=== PATIENT | male | born 1990 | race African-American/Black ===

== ENCOUNTER 2023-11-11 08:32 | Outpatient (OUT) | payer MEDICAID, SELFPAY ==
--- NOTE | 2023-11-11 08:36 | US_ITS ---
The [address] [address] Patient Name: COLIN KUMARI MRN: [id number] date: 1990 Sex: M Assigned Patient Location: [place] Current Patient Location: [place] Accession/Order Number: [id number] Exam Date: 11/11/2023 08:40 Report Date: 11/11/2023 09:08 At the request of: OMAR VERDUZCO Procedure: US right upper quadrant EXAM: US right upper quadrant HISTORY: . Hepatitis Encephalopathy, Hepatitis . COMPARISON: None. TECHNIQUE: Grayscale and color imaging was performed FINDINGS: The pancreas appears normal. The liver is normal in size. No masses are noted. Color-flow is noted in the portal and hepatic veins. The gallbladder appears normal with no stones or sludge identified. Common bile duct is normal measuring 4.5 mm. Right kidney measures 10.3 x 5.4 x 5.4 cm. Color-flow is noted. No solid renal cortical masses or hydronephrosis is noted. No fluid is noted in the right upper quadrant. US/US right upper quadrant IMPRESSION: Normal ultrasound of the right upper quadrant. Electronically authenticated by: TYRON PATINO Date: 11/11/2023 09:08
== END 2023-11-11 08:33 | disposition home or self-care (01) ==
LOC: US 08:32
PROVIDERS: PCP Family Medicine; Visit Provider Family Medicine
DX: K75.9 Inflammatory liver disease, unspecified (principal); G93.40 Encephalopathy, unspecified
CPT/HCPCS: 76705

== ENCOUNTER 2024-08-31 14:22 | Outpatient (REF) | payer MEDICAID, SELFPAY ==
--- OUTSIDE RECORDS SUMMARY | 2024-08-31 14:33 | XMS_ITS | CCD ---
Author Organization [facility] Inform ion Partnership [facility] Care Team Providers Care Bacteriologist Soil Name Role Phone DR OMAR VERDUZCO Consulting Unavailable DAX, DR OMAR Lewis Attending Unavailable VERDUZCO, DR OMAR Lewis Admitting Unavailable VERDUZCO, DR OMAR Lewis Primary Care Unavailable Unavailable Primary Care Provider Unavailabl e PROVIDER, UNKNOWN Attending Unavailable PROVIDER, UNKNOWN Admitting Unavailable Unavailable Primary Care Provider UnavailOMAR Méndez Primary Care Physician [phone] OMAR VERDUZCO Attending Unavailable OMAR VERDUZCO Admitting Unavailable Medications Current Medications Medication Drug Class(es) Dates Sig (Normalized) Sig (Original) amLODIPine 5 mg oral tablet (1 source) Dihydropyridine Calcium Channel Edna take 1 tablet by mouth once daily amLODIPine (Norvasc) 5 MG tablet Take 5 mg by mouth daily. 0 Active busPIRone hydrochloride 10 mg oral tablet (1 source) Start: 10-24-2020 take 1 tablet by mouth three times daily busPIRone (BUSPAR) 10 MG tablet TAKE ONE TABLET BY MOUTH 3 TIMES DAILY BUSPAR 0 10/24/2020 Active chlorhexidine gluconate 1.2 mg/ml mouthwash (1 source) Start: 08-10-2012 take 15 mL by mouth twice daily chlorhexidine (PERIDEX) 0.12 % oral solution Take 15 mL by mouth 2 times daily 1 Bottle 3 08/10/2012 Active clonazePAM 1 mg oral tablet (1 source) Benzodiazepine take 1 tablet by mouth twice daily clonazepam (KLONOPIN) 1 MG tablet Take 1 mg by mouth 2 times daily 0 Active cloNIDine hydrochloride 0.1 mg oral tablet (1 source) Central alpha-2 Adrenergic Agonist Start: 10-24-2020 take 1 tablet by mouth three times daily cloNIDine (CATAPRES) 0.1 MG tablet TAKE ONE TABLET BY MOUTH 3 TIMES DAILY CATAPRES 0 10/24/2020 Active docusate sodium 100 mg oral capsule (1 source) take 1 capsule by mouth twice daily docusate sodium (COLACE) 100 MG capsule Take 100 mg by mouth 2 times daily. 0 Active fluvoxaMINE maleate 50 mg oral tablet (1 source) Serotonin Reuptake Inhibitor Start: 10-24-2020 take 1 tablet by mouth three times daily fluvoxamine (LUVOX) 50 MG tablet TAKE ONE TABLET BY MOUTH 3 TIMES DAILY LUVOX 0 10/24/2020 Active 24 hr guanFACINE 4 mg extended release oral tablet (2 sources) Central alpha-2 Adrenergic Agonist Start: 10-24-2020 take 1 tablet by mouth in the morning GuanFACINE HCl (TENEX) 4 MG er tablet TAKE ONE TABLET BY MOUTH IN THE MORNING 0 10/24/2020 Active take 1 tablet by mouth at bedtim e guanfacine (TENEX) 1 MG tablet Take 1 mg by mouth at bedtime 0 Active levETIRAcetam 750 mg oral tablet (1 source) take 1 tablet by mouth twice daily levetiracetam (KEPPRA) 750 MG tablet Take 750 mg by mouth 2 times daily 0 Active levothyroxine sodium 0.075 mg oral tablet (2 sources) l-Thyroxine Start: 10-24-2020 take 1 tablet by mouth once daily levothyroxine (SYNTHROID) 75 MCG tablet TAKE ONE TABLET BY MOUTH ONCE DAILY ALONG [id number] 0 10/24/2020 Active levothyroxine (S YNTHROID) 100 MCG tablet Take 150 mcg by mouth daily 0 Active lithium carbonate 300 mg oral tablet (1 source) take 1 tablet by mouth three times daily lithium carbonate 300 MG tablet Take 300 mg by mouth 3 times daily 0 Active lubiprostone 0.024 mg oral capsule (1 source) Chloride Channel Activator Start: take 1 capsule by mouth twice daily for constipation Amitiza 24 MCG capsule TAKE ONE CAPSULE BY MOUTH TWICE A DAY FOR CONSTIPATION 0 10/24/2020 Active lurasidone hydrochloride 120 mg oral tablet (1 source) Atypical Antipsychotic Start: take 1 tablet by mouth at bedtime Latuda 120 MG TABS tablet Take by mouth at bedtime. 0 10/24/2020 Active metoprolol tartrate 100 mg oral tablet (1 source) beta-Adrenergic Edna take 1 tablet by mouth twice daily metoprolol (LOPRESSOR) 100 MG tablet Take 100 mg by mouth 2 times daily 0 Active Multiple Vitamin (Multi-Vitamins) tablet (1 source) Start: 021 take 1 tablet by mouth in the morning Multiple Vitamin (Multi-Vitamins) tablet TAKE ONE TABLET BY MOUTH IN THE MORNING 0 10/24/2020 Active Multiple Vitamins-Minerals (MULTIVITAL ORAL) (1 source) Multiple Vitamins-Minerals (MULTIVITAL ORAL) Take by mouth 0 Active OLANZapine 20 mg oral tablet (1 source) Atypical Antipsychotic take 1 tablet by mouth once daily olanzapine (ZYPREXA) 20 MG tablet Take 20 mg by mouth daily 0 Active omeprazole 20 mg delayed release oral capsule (1 source) Proton Pump Inhibitor take 1 capsule by mouth once daily omeprazole (PRILOSEC) 20 MG capsule Take 20 mg by mouth daily 0 Active OXcarbazepine 600 mg oral tablet (2 sources) Anti-epileptic Agent take 1 tablet by mouth twice daily oxcarbazepine (TRILEPTAL) 150 MG tablet Take 150 mg by mouth 2 times daily 0 Active take 1 tablet by mouth twice opal ly oxcarbazepine (TRILEPTAL) 600 MG tablet Take 600 mg by mouth 2 times daily 0 Active phenytoin sodium 100 mg extended release oral capsule (1 source) Anti-epileptic Agent take 1 capsule by mouth three times daily phenytoin (DILANTIN) 100 MG ER capsule Take 100 mg by mouth 3 times daily 0 Active raNITIdine 150 mg oral tablet (1 source) Histamine-2 Receptor Antagonist take 1 tablet by mouth twice daily ranitidine (ZANTAC) 150 MG tablet Take 150 mg by mouth 2 times daily. 0 Active Senna Leaves (1 source) SENNA ORAL Take by mouth. 0 Active sennosides, care home 8.6 mg oral tablet (1 source) Start: 1 take 2 tablets by mouth at bedtime Senna-Tabs 8.6 MG TABS tablet TAKE TWO TABLETS BY MOUTH AT BEDTIME 0 10/24/2020 Active Problems Active Problems Problem Classification Problem Date Documented Da te Episodic/Chronic Developmental disorders (1 source) Severe intellectual disability; Translations: [Severe intellectual disabilities] Onset: 2014 2014 Chronic Disorders of teeth and jaw (1 source) Chronic periodontitis; Translations: [Chronic periodontitis, unspecified] Onset: 08-07-2012 08-07-2012 Chronic Disorders usually diagnosed in infancy, childhood, or adolescence (1 source) Autistic disorder; Translations: [Autistic disorder] Onset: 2014 2014 Chronic Epilepsy; convulsions (1 source) Epilepsy; Translations: [Epilepsy, unspecified, not intractable, without status epilepticus] Onset: 2014 2014 Chronic Essential hypertension (2 sources) Essential (primary) hypertension; Translations: [Essential hypertension] Onset: 10-28-2018 10-27-2020 Chronic Mood disorders (1 source) Bipolar disorder; Translations: [Bipolar disorder, unspecified] Onset: 10-28-2018 10-27-2020 Chronic Other aftercare (1 source) Other long-term (current) drug therapy; Translations: [OTH [facility] CURRENT DRUG THERAPY] Onset: 11-09-2022 Episodic Thyroid disorders (5 sources) Hypothyroidism, unspecified; Translations: [Hypothyroidism] Onset: 10-28-2018 Chronic Past or Other Problems Problem Classification Problem Date Documented Da te Episodic/Chronic Disorders of teeth and jaw (1 source) Dental caries; Translations: [Dental caries, unspecified] Onset: 10-16-2020 10-16-2020 Episodic Other gastrointestinal disorders (1 source) Chronic constipation; Translations: [Other constipation] Onset: 10-28-2018 10-27-2020 Episodic Results Test Name Value Interpretation Reference Range Facility T3 Freeon 11-28-2023 Free T3 [Mass/Vol] 3.1 pg/mL Invalid Interpretation Code 2.0-4.4 [facility] Comment on above: Result Comment: Perf ormed at: [facility] [address] [id number] PhD Erasto Chase Performed By: #### 1 [id number], 4421655, 5325066, 0525371, 8070994, 1926727, 8280740 #### [facility] [address] [place] [address] CBC w/Indiceson 11-26-2023 Erythrocyte distribution width (RBC) [Ratio] 12.8 % Normal 10.9-14.2 [facility] Comment on above: Performed By: #### 1 [id number], 7030932, 8261191, 5840041, 3941062, 6845396, 7907092 #### [facility] [address] [place] [address] Hematocrit (Bld) [Volume fraction] 49.3 % High 37.7-49.0 [facility] Comment on above: Performed By: #### 1 1987610, 3247574, 9358835, 4869315, 5345736, 9583742, 5243398 #### [facility] [address] [place] [address] Hemoglobin (Bld) [Mass/Vol] 16.0 g/dL Normal 13.5-17.5 [facility] Comment on above: Performed By: #### 1 1790280, 0293208, 8804977, 8673933, 8124019, 1089476, 9304496 #### [facility] [address] [place] [address] MCH (RBC) [Entitic mass] 27.9 pg Normal 27.0-34.0 [facility] Comment on above: Performed By: #### 1 6878459, 8243194, 8486279, 8580310, 8419025, 1461002, 1086925 #### [facility] [address] [place] [address] MCHC (RBC) [Mass/Vol] 32.4 g/dL Normal 31.4-36.0 [facility] Comment on above: Performed By: #### 1 0689290, 6675426, 8650611, 8713592, 2029840, 8538691, 0056085 #### [facility] [address] [place] [address] MCV (RBC) [Entitic vol] 86.2 fL Normal 80.0-100.0 [facility] Comment on above: Performed By: #### 1 3204951, 9834435, 0132288, 3878534, 7844112, 7173236, 6911357 #### [facility] [address] [place] [address] Platelet 246.0 E9/L Normal 150.0-500.0 [facility] Comment on above: Performed By: #### 1 1408897, 6932571, 9604037, 6568882, 8398592, 3082602, 8212531 #### [facility] [address] [place] [address] Platelet mean volume (Bld) [Entitic vol] 8.2 fL Normal 6.4-10.8 [facility] Comment on above: Performed By: #### 1 9360904, 1827179, 1712127, 6316187, 1644931, 0165297, 2848559 #### [facility] [address] [place] [address] RBC (Bld) [#/Vol] 5.7 E12/L Normal 4.3-5.9 [facility] Comment on above: Performed By: #### 1 8968929, 8607690, 1306701, 3686361, 0434269, 7661983, 7491481 #### [facility] [address] [place], [place] [address] RBC size Nom (Bld) NORMAL Invalid Interpretation Code [facility] Comment on above: Performed By: #### 1 9995447, 7933228, 4894974, 7913111, 6863560, 1603103, 8369200 #### [facility] [address] [place], [place] [address] WBC corrected for nucl RBC Auto (Bld) [#/Vol] 5.1 E9/L Normal 4.0-11.0 [facility] Comment on above: Performed By: #### 1 6547492, 1405835, 2021111, 4602233, 3125287, 7765003, 8541560 #### [facility] [address] [place] [address] CHEMISTRYOrdered By: SYSTEM SYSTEM on 11-26-2023 Albumin [Mass/Vol] 4.5 g/dL Normal 3.3 - 5.0 gm/dL Remisol Chem Albumin/Globulin [Mass ratio] 1.4 {ratio} Normal 1.1 - 2.2 [facility] Chem ALP [Catalytic activity/Vol] 120 [iU]/d High 21 - 98 Int._Unit/L Remisol Chem ALT No additional P-5'-P [Catalytic activity/Vol] 98 [iU]/d High 6 - 46 Int._Unit/L [facility] Chem Anion gap [Moles/Vol] 12 mmol/L Normal 6 - 16 mEq/L R emisol Chem AST [Catalytic activity/Vol] 39 [iU]/d Normal 5 - 43 Int._Unit/L [facility] Chem Bilirubin [Mass/Vol] 0.3 mg/dL Normal 0.0 - 1 .1 mg/dL [facility] Chem Calcium [Mass/Vol] 9.9 mg/dL Normal 8.9 - 11. 1 mg/dL [facility] Chloride [Moles/Vol] 105 mmol/L Normal 101 - 1 11 mmol/L [facility] Chem CO2 [Moles/Vol] 25 mmol/L Normal 21 - 31 mmol/L [facility] Chem Creatinine [Mass/Vol] 0.8 mg/dL Normal 0.5 - 1.3 mg/dL [facility] Chem eGFR 118 mL/min/1.73 m2 Normal >=59mL/mi n/1. 73 m2 [facility] Chem Free T4 [Mass/Vol] 0.78 ng/dL Normal 0.58 - 1. 64 ng/dL [facility] Chem Globulin (S) [Mass/Vol] 3.2 g/dL Normal 1.4 - 4.0 gm/dL [facility] Glucose [Mass/Vol] 84 mg/dL Normal 55 - 199 mg/dL [facility] Chem Phenytoin Total 12.1 microgram/mL Normal 10.0 - 19.9 mcg/mL [facility] Chem Potassium [Moles/Vol] 4.4 mmol/L Normal 3.5 - 5.3 mmol/L [facility] Chem Protein [Mass/Vol] 7.7 g/dL Normal 6.0 - 7.8 gm/dL [facility] Chem Sodium [Moles/Vol] 138 mmol/L Normal 135 - 145 mmol/L [facility] Chem TSH Qn 0.55 m[IU]/L Normal 0.34 - 5.60 mcIU/mL [facility] Chem Urea nitrogen [Mass/Vol] 13 mg/dL Normal 5 - 21 mg/dL [facility] Chem Urea nitrogen/Creatinine [Mass ratio] 16 mg/mg Normal 10 - 20 [facility] Chem CMPon 11-26-2023 Albumin [Mass/Vol] 4.5 g/dL Normal 3.3-5.0 [facility] Comment on above: Performed By: #### 1 8196809, 8397512, 8280778, 8033190, 8428004, 3337619, 6387542 #### [facility] [address] [place] [address] Albumin/Globulin (S) [Mass conc ratio] 1.4 Normal 1.1-2.2 [facility] Comment on above: Performed By: #### 1 1447170, 8781254, 6071853, 8077084, 1852328, 0587891, 2955681 #### [facility] [address] [place] [address] ALP [Catalytic activity/Vol] 120 Int._Unit/L High 21-98 [facility] Comment on above: Performed By: #### 1 1565554, 0243860, 4823237, 8162720, 8843027, 3367745, 2085475 #### [facility] [address] [place] [address] ALT No additional P-5'-P [Catalytic activity/Vol] 98 Int._Unit/L High 6-46 [facility] Comment on above: Performed By: #### 1 2218269, 3517365, 1454309, 2523763, 3620136, 3361035, 6643380 #### [facility] [address] [place] [address] Anion gap [Moles/Vol] 12 mmol/L Normal 6-16 [facility] Comment on above: Performed By: #### 1 7608307, 6123723, 5904167, 7866956, 9726775, 7135098, 3171652 #### [facility] [address] [place] [address] AST [Catalytic activity/Vol] 39 Int._Unit/L Normal 5-43 [facility] Comment on above: Performed By: #### 1 8191840, 9504335, 0466506, 0266315, 5752390, 1658134, 2622547 #### [facility] [address] [place] [address] Bilirubin [Mass/Vol] 0.3 mg/dL Normal 0.0-1.1 [facility] Comment on above: Performed By: #### 1 3185314, 5480535, 7726627, 4243825, 7307561, 5432561, 5552324 #### [facility] [address] [place] [address] Calcium [Mass/Vol] 9.9 mg/dL Normal 8.9-11.1 [facility] Comment on above: Performed By: #### 1 9600616, 4380503, 7269824, 1264809, 7794772, 9269944, 1456694 #### [facility] [address] [place] [address] Chloride [Moles/Vol] 105 mmol/L Normal 101-111 [facility] Comment on above: Performed By: #### 1 7081268, 8780442, 6500030, 4996568, 4429928, 1485136, 7280596 #### [facility] [address] [place] [address] CO2 [Moles/Vol] 25 mmol/L Normal 21-31 [facility] Comment on above: Performed By: #### 1 5657407, 4937188, 4306245, 3161505, 2017231, 3942000, 6454034 #### [facility] [address] [place] [address] Creatinine [Mass/Vol] 0.8 mg/dL Normal 0.5-1.3 [facility] Comment on above: Performed By: #### 1 7566738, 3966455, 5556012, 1008110, 1653509, 5586975, 0383835 #### [facility] [address] [place] [address] Globulin (S) [Mass/Vol] 3.2 g/dL Normal 1.4-4.0 [facility] Comment on above: Performed By: #### 1 3481220, 6969160, 7507922, 6462354, 3802221, 1162145, 2738609 #### [facility] [address] [place] [address] Glucose [Mass/Vol] 84 mg/dL Normal 55-199 [facility] Comment on above: Performed By: #### 1 3882870, 8432134, 5605951, 9118486, 4989843, 5605136, 5513397 #### [facility] [address] [place] [address] Potassium [Moles/Vol] 4.4 mmol/L Normal 3.5-5.3 [facility] Comment on above: Performed By: #### 1 9695278, 9874097, 0276127, 3143231, 0786076, 2142614, 4589229 #### [facility] [address] [place] [address] Protein [Mass/Vol] 7.7 g/dL Normal 6.0-7.8 [facility] Comment on above: Performed By: #### 1 9218030, 1466172, 4729987, 4559302, 7309967, 2802026, 6397278 #### [facility] [address] [place] [address] Sodium [Moles/Vol] 138 mmol/L Normal 135-145 [facility] Comment on above: Performed By: #### 1 4075615, 5412462, 1893891, 3130966, 6975193, 6845352, 1801688 #### [facility] [address] [place] [address] Urea nitrogen [Mass/Vol] 13 mg/dL Normal 5-21 [facility] Comment on above: Performed By: #### 1 0637905, 4713326, 1012012, 2907262, 2752575, 5139649, 5306562 #### [facility] [address] [place] [address] Urea nitrogen/Creatinine [Mass ratio] 16 No Units Normal 10-20 [facility] Comment on above: Performed By: #### 1 4049821, 5287764, 5019139, 6950147, 8195702, 1934278, 9989143 #### [facility] [address] [place] [address] Dilantinon 11-26-2023 Phenytoin Total 12.1 microgram/mL Normal 10.0-19.9 [facility] Comment on above: Performed By: #### 1 7074477, 1593774, 6699015, 6603067, 3984584, 7919140, 3710781 #### [facility] [address] [place] [address] Free T4on 11-26-2023 Free T4 [Mass/Vol] 0.78 ng/dL Normal 0.58-1.64 [facility] Comment on above: Performed By: #### 1 9311339, 9994004, 6796259, 1104762, 1570407, 2051045, 9746282 #### [facility] [address] [place] [address] HEMATOLOGYOrdered By: SYSTEM SYSTEM on 11-26-2023 Erythrocyte distribution width (RBC) [Ratio] 12.8 % Normal 10.9 - 14.2 % Remisol Heme Hematocrit (Bld) [Volume fraction] 49.3 % High 37.7 - 49.0 % Remisol Heme Hemoglobin (Bld) [Mass/Vol] 16.0 g/dL Normal 13.5 - 17.5 gm/dL Remisol Heme MCH (RBC) [Entitic mass] 27.9 pg Normal 27.0 - 34.0 pg Remisol Heme MCHC (RBC) [Mass/Vol] 32.4 g/dL Normal 31.4 - 36.0 gm/dL Remisol Heme MCV (RBC) [Entitic vol] 86.2 fL Normal 80.0 - 100.0 fL Rem[facility] Heme Platelet 246.0 E9/L Normal 150.0 - 500.0 E9/L Remisol Heme Platelet mean volume (Bld) [Entitic vol] 8.2 fL Normal 6.4 - 10.8 fL Remisol Heme RBC (Bld) [#/Vol] 5.7 E12/L Normal 4.3 - 5.9 E12/L Remisol Heme RBC size Nom (Bld) NORMAL *NA* (11/26/23 7:15 AM) Invalid Interpretation Code Remisol Heme WBC corrected for nucl RBC Auto (Bld) [#/Vol] 5.1 E9/L Normal 4.0 - 11.0 E9/L [facility] Heme Physician Orderon 11-26-2023 Physician Order [id number] Normal [facility] TSHon 11-26-2023 TSH Qn 0.55 m[IU]/L Normal 0.34-5.60 [facility] Comment on above: Performed By: #### 1 3705142, 8985244, 3567479, 2154793, 1939475, 5264101, 5637179 #### [facility] [address] [place] [address] eGFRon 11-26-2023 eGFR 118 mL/min/1.73 m2 Normal >=59 [facility] Comment on above: Order Comment: Order added by Discern Expert. Performed By: #### 1 3371544, 0694455, 2890813, 2546893, 0138218, 6888220, 4933687 #### [facility] [address] [place] [address] Telephone Encounteron 2022 [employer] Authentication Interface Message Text Reason for Escalation: RN Kenya from [facility] calling in to speak with Blanquita. She states she had a phone number for Blanquita that no longer works. The pt was seen on 02/12/23 and was placed on the OR waitlist. Kenya states that pt upper left tooth has broken. They would like to know if the clinic has a cancelation list or urgent waitlist for OR appts. Kenya can be reached at [phone]. E-mail sent to Kelli 03/11/23 Normal [facility] [employer] Progress Noteson 02-12-2023 [employer] Authentication Interface Message Text ----- Sunday, February 12, 2023 at 10:21:24 AM ----- ----- Provider: Elena Benedict DDS -- Clinic: [place] [address] ----- OR EVALUATION Patient presents for evaluation to determine best course of treatment due to history of Intellectual disability, Bipolar disorder, hypertension, epilepsy. Patient is accompanied by caregiver for today's appointment. Patient partially cooperated for a partial intraoral exam. Clinical findings: Gingivitis, gingival overgrowth due to Klonopin and amlodipine, severe plaque deposits. No obvious signs of infection or fractured teeth. It is best suited that this patient have full comprehensive examination, radiographs and treatment completed in the OR setting. Explained that the patient will be added to our OR waiting list ( once consent form is returned) , and the legal guardian will be contacted once a time slot becomes available. Legal Guardian: [phone] (Home Phone) Alternate Ore Puncher Noe Moraes (Father) NOTE: Consent form provider to caregiver, explained that when consent form is faxed, patient will be added to the OR list Next Visit: OR Normal [facility] [employer] [facility] CBC AUTO DIFFon 11-06-2022 BASO # 0.0 103/ul Normal 0.0-0.1 [facility] Comment on above: Performed By: #### C BC #### [facility] [address] [place] [address] Dr. Brenton Ravi Basophils/100 WBC (Bld) 0.4 % Normal 0.2-2.0 [facility] Comment on above: Performed By: #### C BC #### [facility] [address] [place] [address] Dr. Brenton Ravi EO # 0.1 103/ul Normal 0.0-0.7 [facility] Comment on above: Performed By: #### C BC #### [facility] [address] [place] [address] Dr. Brenton Ravi Eosinophils/100 WBC (Bld) 2.0 % Normal 0.9-7.0 [facility] Comment on above: Performed By: #### C BC #### [facility] [address] [place] [address] Dr. Brenton Ravi Erythrocyte distribution width (RBC) [Ratio] 12.5 % Normal 11.0-15.0 [facility] Comment on above: Performed By: #### C BC #### [facility] [address] [address] [address] Brenton Ravi Hematocrit (Bld) [Volume fraction] 44.5 % Normal 42.0-54.0 [facility] Comment on above: Performed By: #### C BC #### [facility] [address] [address] [address] Brenton Ravi Hemoglobin (Bld) [Mass/Vol] 14.8 g/dL Normal 14.0-18.0 [facility] Comment on above: Performed By: #### C BC #### [facility] [address] [address] [address] Brenton Ravi IG # 0.02 10e3/ul Normal 0.00-0.03 [facility] Comment on above: Performed By: #### C BC #### [facility] [address] [address] [address] Brenton Ravi IG % 0.4 % Normal 0.0-0.5 [facility] Comment on above: Performed By: #### C BC #### [facility] [address] [address] [address] Brenton Ravi LYMPH # 1.8 103/ul Normal 1.2-3.8 [facility] Comment on above: Performed By: #### C BC #### [facility] [address] [address] [address] Brenton Ravi Lymphocytes/100 WBC (Bld) 36.7 % Normal 20.5-60.0 [facility] Comment on above: Performed By: #### C BC #### [facility] [address] [address] [address] Brenton Ravi MANUAL DIFF REQ NO Normal [facility] Comment on above: Performed By: #### C BC #### [facility] [address] [place] [address] Dr. Brenton Ravi MCH (RBC) [Entitic mass] 27.8 pg Normal 25.9-34.0 [facility] Comment on above: Performed By: #### C BC #### [facility] [address] [address] [address] Brenton Ravi MCHC (RBC) [Mass/Vol] 33.3 g/dL Normal 29.9-35.2 [facility] Comment on above: Performed By: #### C BC #### [facility] [address] [address] [address] Brenton Ravi MCV (RBC) [Entitic vol] 83.5 fL Normal 80.0-94.0 [facility] Comment on above: Performed By: #### C BC #### [facility] [address] [address] [address] Brenton Ravi MONO # 0.4 103/ul Normal 0.3-0.8 [facility] Comment on above: Performed By: #### C BC #### [facility] Laboratory [address] [place] [address] Dr. Brenton Ravi Monocytes/100 WBC (Bld) 8.2 % Normal 1.7-12.0 [facility] Comment on above: Performed By: #### C BC #### [facility] Laboratory [address] [place] [address] Dr. Brenton Ravi NEUT # 2.6 103/ul Normal 1.4-6.5 [facility] Comment on above: Performed By: #### C BC #### [facility] Laboratory [address] [place] [address] Dr. Brenton Ravi Neutrophils/100 WBC (Bld) 52.3 % Normal 43.0-75.0 [facility] Comment on above: Performed By: #### C BC #### [facility] Laboratory [address] [place] [address] Dr. Brenton Ravi Platelet mean volume (Bld) [Entitic vol] 8.8 fL Critically low 9.5-13.5 [facility] Comment on above: Performed By: #### C BC #### [facility] [address] [place] [address] Dr. Brenton Ravi PLT 291 103/ul Normal 150-450 [facility] Comment on above: Performed By: #### C BC #### [facility] [address] [place] [address] Dr. Brenton Ravi RBC 5.33 106/ul Normal 4.70-6.10 [facility] Comment on above: Performed By: #### C BC #### [facility] [address] [place] [address] Dr. Brenton Ravi WBC 5.0 103/ul Normal 4.0-11.0 [facility] Comment on above: Performed By: #### C BC #### [facility] Laboratory [address] [place] [address] Dr. Brenton Ravi DILANTINon 11-06-2022 Phenytoin [Mass/Vol] 11.7 ug/mL Normal 10.0-20.0 [facility] Comment on above: Performed By: #### P HY #### [facility] Laboratory [address] [place] [address] Dr. Brenton Ravi FREE T4on 11-06-2022 Free T4 [Mass/Vol] 0.86 ng/dL Normal 0.76-1.46 [facility] Comment on above: Performed By: #### F T4 #### [facility] Laboratory [address] [place] [address] Dr. Brenton Ravi LIPID PROFILEon 11-06-2022 CHOL-HDL RATIO NORM SEE BELOW Normal [facility] Comment on above: Result Comment: 3.3 - 4.4 LOW RISK 4.4 - 7.1 AVERAGE RISK 7.1 - 11.0 MODERATE RISK >11.0 HIGH RISK Performed By: #### C MP, LIPID, TSH #### [facility] [address] [place] [address] Dr. Brenton Ravi Cholesterol [Mass/Vol] 133 mg/dL Normal <=200 [facility] Comment on above: Performed By: #### C MP, LIPID, TSH #### [facility] Laboratory [address] [place] [address] Dr. Brenton Ravi Cholesterol in HDL [Mass/Vol] 32 mg/dL Critically low 40-60 [facility] Comment on above: Performed By: #### C MP, LIPID, TSH #### [facility] [address] [place] [address] Dr. Brenton Ravi Cholesterol in LDL [Mass/Vol] 74.6 mg/dL Normal [facility] Comment on above: Performed By: #### C MP, LIPID, TSH #### [facility] Laboratory [address] [address] [address] Brenton Ravi Cholesterol.total/Cho lesterol in HDL [Mass ratio] 4.2 {ratio} Normal [facility] Comment on above: Performed By: #### C MP, LIPID, TSH #### [facility] Laboratory [address] [address] [address] Brenton Ravi HDL NORMAL > or = 60 mg/dl - LOW CARDIOVASCULAR RISK <40 mg/dl - HIGH CARDIOVASCULAR RISK Normal [facility] Comment on above: Performed By: #### C MP, LIPID, TSH #### [facility] [address] [place] [address] Dr. Brenton Ravi LDL CALC NORMAL SEE BELOW Normal [facility] Comment on above: Result Comment: <100 mg/dl OPTIMAL 100 - 129 mg/dl NEAR OR ABOVE OPTIMAL 130 - 159 mg/dl BORDERLINE HIGH 160 - 189 mg/dl HIGH >190 mg/dl VERY HIGH Performed By: #### C MP, LIPID, TSH #### [facility] [address] [place] [address] Dr. Brenton Ravi Triglyceride [Mass/Vol] 132 mg/dL Normal <=150 [facility] Comment on above: Performed By: #### C MP, LIPID, TSH #### [facility] [address] [place] [address] Dr. Brenton Ravi VLDL CALC 26.4 mg/dL Normal [facility] Comment on above: Performed By: #### C MP, LIPID, TSH #### [facility] [address] [address] [address] Brenton Ravi PROF 14(COMP METB)on 023 Albumin [Mass/Vol] 4.0 g/dL Normal 3.4-5.0 [facility] Comment on above: Performed By: #### C MP, LIPID, TSH #### [facility] [address] [place] [address] Dr. Brenton Ravi Albumin/Globulin [Mass ratio] 1.1 {ratio} Normal [facility] Comment on above: Performed By: #### C MP, LIPID, TSH #### [facility] [address] [address] [address] Brenton Ravi ALP [Catalytic activity/Vol] 140 U/L Critically high 46-116 [facility] Comment on above: Performed By: #### C MP, LIPID, TSH #### [facility] [address] [address] [address] Brenton Ravi ALT [Catalytic activity/Vol] 122 U/L Critically high 16-63 [facility] Comment on above: Performed By: #### C MP, LIPID, TSH #### [facility] [address] [place] [address] Dr. Brenton Ravi Anion gap [Moles/Vol] 11.6 mmol/L Normal [facility] Comment on above: Performed By: #### C MP, LIPID, TSH #### [facility] [address] [place] [address] Dr. Brenton Ravi AST [Catalytic activity/Vol] 37 U/L Normal 15-37 [facility] Comment on above: Performed By: #### C MP, LIPID, TSH #### [facility] [address] [place] [address] Dr. Brenton Ravi Bilirubin [Mass/Vol] 0.2 mg/dL Normal 0.2-1.0 [facility] Comment on above: Performed By: #### C MP, LIPID, TSH #### [facility] [address] [place] [address] Dr. Brenton Ravi Calcium [Mass/Vol] 9.1 mg/dL Normal 8.5-10.1 [facility] Comment on above: Performed By: #### C MP, LIPID, TSH #### [facility] [address] [place] [address] Dr. Brenton Ravi Chloride [Moles/Vol] 105 mmol/L Normal 98-107 [facility] Comment on above: Performed By: #### C MP, LIPID, TSH #### [facility] [address] [place] [address] Dr. Brenton Ravi CO2 [Moles/Vol] 29.5 mmol/L Normal 21.0-32.0 [facility] Comment on above: Performed By: #### C MP, LIPID, TSH #### [facility] [address] [address] [address] Brenton Ravi Creatinine [Mass/Vol] 0.79 mg/dL Normal 0.70-1.30 [facility] Comment on above: Performed By: #### C MP, LIPID, TSH #### [facility] [address] [address] [address] Brenton Ravi EGFR-AF CITIZEN [place] >60 Normal >=60 [facility] Comment on above: Performed By: #### C MP, LIPID, TSH #### [facility] [address] [address] [address] Brenton Ravi EGFR-NON AF CITIZEN OF [place] >60 Normal >=60 [facility] Comment on above: Performed By: #### C MP, LIPID, TSH #### [facility] [address] [address] [address] Brenton Ravi Globulin (S) [Mass/Vol] 3.7 g/dL Normal [facility] Comment on above: Performed By: #### C MP, LIPID, TSH #### [facility] [address] [address] [address] Brenton Ravi Glucose [Mass/Vol] 105 mg/dL Normal 74-106 [facility] Comment on above: Performed By: #### C MP, LIPID, TSH #### [facility] [address] [address] [address] Brenton Ravi Potassium [Moles/Vol] 4.1 mmol/L Normal 3.5-5.1 [facility] Comment on above: Performed By: #### C MP, LIPID, TSH #### [facility] [address] [address] [address] Brenton Ravi Protein [Mass/Vol] 7.7 g/dL Normal 6.4-8.2 [facility] Comment on above: Performed By: #### C MP, LIPID, TSH #### [facility] [address] [address] [address] Brenton Ravi Sodium [Moles/Vol] 142 mmol/L Normal 136-145 [facility] Comment on above: Performed By: #### C MP, LIPID, TSH #### [facility] [address] [address] [address] Brenton Ravi Urea nitrogen [Mass/Vol] 10.0 mg/dL Normal 7.0-18.0 [facility] Comment on above: Performed By: #### C MP, LIPID, TSH #### [facility] [address] [address] [address] Brenton Ravi Urea nitrogen/Creatinine [Mass ratio] 12.7 mg/mg Normal [facility] Comment on above: Performed By: #### C MP, LIPID, TSH #### [facility] [address] [address] [address] Brenton Ravi TSHon 11-06-2022 TSH 1.080 uIU/mL Normal 0.358-3.740 [facility] Comment on above: Performed By: #### C MP, LIPID, TSH #### [facility] [address] [address] [address] Brenton Ravi Encounters Encounter Date Encounter Type Care Provider Facility Start: 11-26-2023 End: 11-26-2023 Lab Drop off OMAR VERDUZCO [facility] Start: 11-26-2023 End: 11-27-2023 ambulatory OMAR VERDUZCO [facility] Start: 10-30-2023 Telephone encounter Ale[facility] Start: 03-11-2023 Telephone encounter Shannen Benedict Work Phone: [facility] Comment on above: Dental Start: 02-12-2023 End: 02-13-2023 ambulatory UNKNOWN PROVIDER Facility:[facility] Start: 11-06-2022 End: 11-07-[address] OMAR VERDUZCO Facility: Plan of Treatment Date Care Activity Detail Author Start: 2038 Shingles (RZV) Vacci ne (1 of 2) Shingles (RZV) Vaccine (1 of 2) [facility] Start: 02-04-2024 Tetanus vaccination Tetanus (T d or Tdap) [facility] Start: 06-01-2023 Influenza vaccination Influenza Vacc ine (#1) [facility] Start: 05-02-2023 Influenza vaccination Influenza Vacc ine [facility] Start: 11-26-2007 DTaP,Tdap and Td Vaccines (1 - Tdap) DTaP,Tdap and Td Vaccines (1 - Tdap) [facility] Start: 2006 Adult BMI Screening Adult BMI Screen ing [facility] Start: 2006 Hepatitis C screening Hepatitis C An tibody [facility] Start: 11-26-2003 HIV screening HIV Test [facility] Start: 2000 Depression Screening Depression Scre ening [facility] Start: 2000 Tobacco Screening Tobacco Screening [facility] Start: 1988 Basic metabolic 2000 panel - Serum or Plasma Basic Metabolic Panel [facility] Start: 1988 Thyroid stimulating hormone measurement TSH [facility] Immunizations Immunization Date Immunization Notes Care Provider Fa cility 06-27-2021 influenza, injectabl e, quadrivalent, [facility] 06-27-2021 influenza virus vacc ine, unspecified formulation [facility] Work Phone: [facility] 10-03-2020 Pfizer Monovalent (1 2+ yrs) SARS-COV-2 (COVID-19) vaccine, mRNA, spike protein, LNP, pres. free, 30 mcg/0.3mL dose (YPH=693) [facility] Benedict Work Phone: [facility] 09-12-2020 Pfizer Monovalent (1 2+ yrs) SARS-COV-2 (COVID-19) vaccine, mRNA, spike protein, LNP, pres. free, 30 mcg/0.3mL dose (XSE=229) [facility] Benedict Work Phone: [facility] 06-07-2020 influenza, injectabl e, quadrivalent, preservative free Shannen Jose Benedict Work Phone: [facility] 06-25-2019 influenza, injectabl e, quadrivalent, preservative free Shannen Jose Benedict Work Phone: [facility] 06-10-2018 influenza, injectabl e, quadrivalent, preservative free Shannen Jose Benedict Work Phone: [facility] 06-25-2017 influenza, injectabl e, quadrivalent, contains preservative Shannen Jose Benedict Work Phone: [facility] 06-05-2016 influenza, seasonal, injectable Shannen Jose Benedict Work Phone: [facility] 06-22-2015 influenza, injectabl e, quadrivalent, preservative free Shannen Garcia Benedict Work Phone: [facility] 07-07-2014 influenza, injectabl e, quadrivalent, preservative free Shannen Jose Benedict Work Phone: [facility] 02-03-2014 tetanus toxoid, redu devyn diphtheria toxoid, and acellular pertussis vaccine, adsorbed [facility]: [facility] 06-29-2013 influenza, seasonal, injectable Shannen Jose Benedict Work Phone: [facility] 06-24-2012 influenza, seasonal, injectable Shannen Jose Benedict Work Phone: [facility] 05-15-2011 influenza, seasonal, injectable Shannen Barleela Benedict Work Phone: [facility] 06-27-2010 influenza virus vacc ine, whole virus [facility] 07-19-2009 novel influenza-H1N1 -09, preservative-free, injectable Shannen Jose Benedict Work Phone: [facility] 06-23-2008 influenza virus vacc ine, whole virus [facility] 06-17-2007 influenza, seasonal, injectable Shannen Benedict Work Phone: [facility] 01-15-2007 meningococcal polysa ccharide (groups A, C, Y and W-135) diphtheria toxoid conjugate vaccine (MCV4P) Shannen Benedict Work Phone: [facility] 06-30-2006 influenza, seasonal, injectable Shannen Benedict Work Phone: [facility] 06-21-2004 hepatitis B vaccine, pediatric or pediatric/adolescent dosage Shannen Jose Benedict Work Phone: [facility] 01-25-2004 hepatitis B vaccine, pediatric or pediatric/adolescent dosage Shannen Jose Benedict Work Phone: [facility] 12-14-2003 hepatitis B vaccine, pediatric or pediatric/adolescent dosage Shannen Jose Benedict Work Phone: [facility] 12-14-2003 TD(adult) unspecifie d formulation Shannen Jose Benedict Work Phone: [facility] 12-20-1993 diphtheria, tetanus toxoids and acellular pertussis vaccine, unspecified formulation [place] Jose Benedict Work Phone: [facility] 12-20-1993 measles, mumps and r ubella virus vaccine [place] Jose Benedict Work Phone: [facility] 12-20-1993 trivalent poliovirus vaccine, live, oral Shannen Jose Benedict Work Phone: [facility] 05-03-1992 diphtheria, tetanus toxoids and acellular pertussis vaccine, unspecified formulation Shannen Jose Benedict Work Phone: [facility] 05-03-1992 measles, mumps and r ubella virus vaccine [place] Jose Benedict Work Phone: [facility] 05-03-1992 trivalent poliovirus vaccine, live, oral Shannen Jose Benedict Work Phone: [facility] 05-27-1990 diphtheria, tetanus toxoids and acellular pertussis vaccine, unspecified formulation Shannen Benedict Work Phone: [facility] 05-27-1990 haemophilus influenz ae type b vaccine, PRP-T conjugate Shannen Benedict Work Phone: [facility] 05-27-1990 trivalent poliovirus vaccine, live, oral Shannen Benedict Work Phone: [facility] 05-21-1990 trivalent poliovirus vaccine, live, oral Shannen Benedict Work Phone: [facility] 11-19-1989 diphtheria, tetanus toxoids and acellular pertussis vaccine, unspecified formulation Shannen Benedict Work Phone: [facility] 01-30-1989 diphtheria, tetanus toxoids and acellular pertussis vaccine, unspecified formulation Shannen Benedict Work Phone: [facility] 01-30-1989 trivalent poliovirus vaccine, live, oral Shannen Benedict Work Phone: [facility] Payers Date Payer Category Payer Medicaid MEDICAID [id number] DITIONAL MEDICAID [id number] 2012-Present [address] [place] [address] Medicaid [id number] 1988 Unknown [id number] 1988 Unknown [id number] 1988 Unknown [id number] 1961 Medicaid [id number] Social History Date Type Detail Facility Tobacco smoking status [facility]: [facility] Sex Assigned At Not on file [facility] Gender identity Not on file [facility] Tobacco smoking status No Smoking Status Entered [facility] Evaluation + Plan note 11-26-2023 Note Date & Type Note Facility 11-26-2023 Evaluation + Plan note Diagnostic Tests PendingT3 Free 11/26/23 [facility] Note 10-30-2023 Telephone Encounter - Alecia Batista - 10/30/2023 9:43 AM EST Note Date & Type Note Facility 10-30-2023 Miscellaneous Notes Formattin g of this note might be different from the original. [facility] called stating they needed to cancel his appt on 11/25/[address] Snow as he was the wrong pt. documented in this encounter [employer] Telephone encounter Note 10-30-2023 Telephone Encounter - Alecia Batista - 10/30/2023 9:43 AM EST Note Date & Type Note Facility 10-30-2023 Telephone encount er Note [facility] called stating they needed to cancel his appt on 11/25/[address] Snow as he was the wrong pt. [employer] [facility] Telephone encounter Note 03-11-2023 Telephone Encounter - Aminata Conway - 03/11/2023 2:33 PM EDT Note Date & Type Note Facility 03-11-2023 Telephone encounter Note Form atting of this note might be different from the original. Reason for Escalation: RN Kenya from [facility] calling in to speak with Blanquita. She states she had a phone number for Blanquita that no longer works. The pt was seen on 02/12/23 and was placed on the OR waitlist. Kenya states that pt upper left tooth has broken. They would like to know if the clinic has a cancelation list or urgent waitlist for OR appts. Kenya can be reached at [phone]. E-mail sent to Kelli [facility]11[facility] 03-11-2023 Telephone Encounter - Aminata Conway - 03/11/2023 2:33 PM EDT Note Date & Type Note Facility 03-11-2023 Miscellaneous Notes Formattin g of this note might be different from the original. Reason for Escalation: RN Kenya from [facility] calling in to speak with Blanquita. She states she had a phone number for Blanquita that no longer works. The pt was seen on 02/12/23 and was placed on the OR waitlist. Kenya states that pt upper left tooth has broken. They would like to know if the clinic has a cancelation list or urgent waitlist for OR appts. Kenya can be reached at [phone]. E-mail sent to Kelli 03/11/23 documented in this encounter [facility] Hospital course Narrative Note Date & Type Note [facility] course Narrative No data available for this section [facility] Hospital Discharge instructions Note Date & Type Note Facility Hospital Discharge instructions No data available for this section [facility] Instructions Note Date & Type Note Facility Instructions Not on filedocumented in this en counter [facility] Progress note Note Date & Type Note Facility Progress note No data available for this section [facility] Summary Purpose Family History No Family History Records FoundNo Family History Records Found No data available for this section No Family History Records Found Advance Directives No Advanced Directives Records FoundNo Advanced Directives Records FoundNo Advanced Directives Records Found Additional Source Comments (unrecognized sect ion and content) No Status Records FoundNo Status Records FoundNo Status Records Found INFORMATION SOURCE (unrecogn ized section and content) DATE CREATED AUTHOR 12/07/2022 [facility] DATE CREATED AUTHOR AUTHOR'S ORGANIZ ATION 03/12/2023 [facility] DATE CREATED AUTHOR AUTHOR'S ORGANIZ ATION 11/28/2023 [facility] Reason for Visit (unrecogniz ed section and content) Reason Onset Date Comments Dental 03/11/2023 Patient Care team informatio n (unrecognized section and content) Personnel Name: OMAR VERDUZCO DO Address: Address: [address] [place] [address] FOR RECORDS PERTAINING TO PATIENTS WHO ARE OR HAVE BEEN ENROLLED IN A CHEMICAL DEPENDENCY/SUBSTANCEABUSE PROGRAM, SOME INFORMATION MAY BE OMITTED. This clinical summary was aggregated from multiple sources. Caution should be exercised in using it in the provision of clinical care. This summary normalizes information from multiple sources, and as a consequence, information in this document may materially change the coding, format and clinical context of patient data. In addition, data may be omitted in some cases. CLINICAL DECISIONS SHOULD BE BASED ON THE PRIMARY CLINICAL RECORDS. [facility]. provides no warranty or guarantee of the accuracy or completeness of information in this document.
[2024-08-31 15:01] LABS: Bilirubin Urine NEGATIVE (NEGATIVE); Blood Urine NEGATIVE (NEGATIVE); Clarity Urine CLEAR (CLEAR); Color Urine YELLOW (YELLOW); Glucose Urine UA NEGATIVE (NEGATIVE); Ketones Urine NEGATIVE (NEGATIVE); Leukocyte Esterase Urine NEGATIVE (NEGATIVE); Nitrite Urine NEGATIVE (NEGATIVE); Protein Urine NEGATIVE (NEG/TRACE); Specific Gravity Urine 1.025 (1.005-1.025); Urobilinogen Urine 0.2 EU/dL (0.2-1.0)
[2024-08-31 15:02] LABS: Urine Microscopic Indicated NO
== END 2024-08-31 14:23 | disposition home or self-care (01) ==
LOC: LAB 14:22
PROVIDERS: PCP Family Medicine; Visit Provider Family Medicine
DX: R35.0 Frequency of micturition (principal); N39.498 Other specified urinary incontinence
CPT/HCPCS: 81003

== ENCOUNTER 2024-11-09 09:11 | Outpatient (OUT) | payer MEDICAID, SELFPAY ==
[2024-11-10 06:54] LABS: Basophils Percent Auto 0.6 % (0.2-2.0); Eosinophils Absolute Auto 0.1 10^3/uL (0.0-0.7); Eosinophils Percent Auto 2.4 % (0.9-7.0); Hematocrit 44.7 % (42.0-54.0); Hemoglobin 15.2 g/dL (14.0-18.0); Immature Granulocytes Abs Auto 0.01 10^3/uL (0.00-0.03); Immature Granulocytes Pct Auto 0.2 % (0.0-0.5); Lymphocytes Absolute Auto 1.7 10^3/uL (1.2-3.8); Lymphocytes Percent Auto 34.3 % (20.5-60.0); Mean Corpuscular Hemoglobin 28.3 pg (25.9-34.0); Mean Corpuscular Volume 83.2 fL (80.0-94.0); Mean Platelet Volume 9.3 fL (9.5-13.5); Monocytes Absolute Auto 0.5 10^3/uL (0.3-0.8); Monocytes Percent Auto 10.5 % (1.7-12.0); Neutrophils Absolute Auto 2.6 10^3/uL (1.4-6.5); Platelet Count 233 10^3/uL (150-450); Red Blood Count 5.37 10^6/uL (4.70-6.10); Red Cell Distribution Width 12.3 % (11.0-15.0); White Blood Count 5.1 10^3/uL (4.0-11.0)
[2024-11-10 07:48] LABS: Free T4 0.79 ng/dL (0.76-1.46)
[2024-11-10 07:53] LABS: Alanine Aminotransferase 89 U/L (16-63); Albumin Level 3.6 g/dL (3.4-5.0); Alkaline Phosphatase 142 U/L (46-116); Anion Gap 12.9; Aspartate Amino Transferase 30 U/L (15-37); BUN Creatinine Ratio 9.7; Bilirubin Total 0.2 mg/dL (0.2-1.0); Calcium 8.8 mg/dL (8.5-10.1); Carbon Dioxide 25.1 mmol/L (21.0-32.0); Chloride 105 mmol/L (98-107); Estimated GFR (African America >60 (>=60 mL/min/1.73m^2); Estimated GFR (Non-African Ame >60 (>=60 mL/min/1.73m^2); Free T3 2.78 pg/mL (2.18-3.98); Globulin 3.7 g/dL; Glucose 106 mg/dL (74-106); Sodium 139 mmol/L (136-145); Thyroid Stimulating Hormone 0.709 uIU/mL (0.358-3.740); Total Protein 7.3 g/dL (6.4-8.2)
--- OUTSIDE RECORDS SUMMARY | 2024-11-15 09:24 | XMS_ITS | CCD ---
Author Organization [facility] Inform ion Partnership [facility] Care Team Providers Care Lubrication Technician Name Role Phone DR OMAR VERDUZCO Consulting Unavailable VERDUZCO, DR OMAR Lewis Attending Unavailable VERDUZCO, DR OMAR Lewis Admitting Unavailable VERDUZCO, DR OMAR Lewis Primary Care Unavailable Unavailable Primary Care Provider Unavailabl e PROVIDER, UNKNOWN Attending Unavailable PROVIDER, UNKNOWN Admitting Unavailable OMAR VERDUZCO Primary Care Physician [phone] OMAR VERDUZCO Attending Unavailable OMAR VERDUZCO Admitting Unavailable Unavailable Primary Care Provider Unavailabl e Medications Current Medications Medication Drug Class(es) Dates [...] ONE TABLET BY MOUTH ONCE DAILY ALONG [id number] 10/24/2020 Active levothyroxine (S YNTHROID) 100 [...] ORAL Take by mouth. 0 Active sennosides, senior living 8.6 mg oral tablet (1 source) Start: [...] 10-27-2020 Chronic Other aftercare (1 source) Other alf (current) drug therapy; Translations: [OTH HALFWAY CURRENT DRUG THERAPY] Onset: 11-09-2022 Episodic Thyroid [...] [Mass/Vol] 3.1 pg/mL Invalid Interpretation Code 2.0-4.4 [facility] Comment on above: Result Comment: Perf ormed at: [facility] [address] [id number] PhD Erasto Chase Performed By: #### 1 [id number], 4775974, 0076999, 8002854, 8938655, 1843155, 8583131 #### [facility] [address] [place] [address] CBC w/Indiceson 11-26-2023 Erythrocyte distribution width (RBC) [Ratio] 12.8 % Normal 10.9-14.2 [facility] Comment on above: Performed By: #### 1 8202648, 2861439, 8324692, 3878286, 0621975, 8432645, 3917926 #### [facility] [address] [place] [address] Hematocrit (Bld) [Volume fraction] 49.3 % High 37.7-49.0 [facility] Comment on above: Performed By: #### 1 3794980, 8751415, 1300188, 2477918, 5787897, 6150010, 3327137 #### [facility] [address] [place] [address] Hemoglobin (Bld) [Mass/Vol] 16.0 g/dL Normal 13.5-17.5 [facility] Comment on above: Performed By: #### 1 4179014, 2595216, 1010909, 5649726, 0286528, 6502370, 7931723 #### [facility] [address] [place] [address] MCH (RBC) [Entitic mass] 27.9 pg Normal 27.0-34.0 [facility] Comment on above: Performed By: #### 1 8611948, 3835806, 6394096, 8472687, 2148043, 8065205, 7941640 #### [facility] [address] [place] [address] MCHC (RBC) [Mass/Vol] 32.4 g/dL Normal 31.4-36.0 [facility] Comment on above: Performed By: #### 1 0819041, 1846528, 2327993, 7965047, 3009639, 7808199, 0034452 #### [facility] [address] [place] [address] MCV (RBC) [Entitic vol] 86.2 fL Normal 80.0-100.0 [facility] Comment on above: Performed By: #### 1 0004438, 7401212, 0385302, 1164173, 5832459, 6851734, 2514827 #### [facility] [address] [place] [address] Platelet 246.0 E9/L Normal 150.0-500.0 [facility] Comment on above: Performed By: #### 1 7795015, 7264280, 7520058, 9884104, 2473097, 3583508, 7158773 #### [facility] [address] [place] [address] Platelet mean volume (Bld) [Entitic vol] 8.2 fL Normal 6.4-10.8 [facility] Comment on above: Performed By: #### 1 6246696, 3655498, 3718530, 9711182, 7181750, 1628433, 4442168 #### [facility] [address] [place] [address] RBC (Bld) [#/Vol] 5.7 E12/L Normal 4.3-5.9 [facility] Comment on above: Performed By: #### 1 9440277, 0303625, 9646200, 6706438, 1372268, 1041044, 9420854 #### [facility] [address] [place], [place] [address] RBC size Nom (Bld) NORMAL Invalid Interpretation Code [facility] Comment on above: Performed By: #### 1 8130772, 4310383, 3624384, 1796099, 4639064, 4849682, 7558025 #### [facility] [address] [place], [place] [address] WBC corrected for nucl RBC Auto (Bld) [#/Vol] 5.1 E9/L Normal 4.0-11.0 [facility] Comment on above: Performed By: #### 1 4060244, 8674983, 0890171, 5211643, 8451105, 9942954, 7492094 #### [facility] [address] [place] [address] CHEMISTRYOrdered By: SYSTEM SYSTEM on 11-26-2023 Albumin [...] 11-26-2023 Albumin [Mass/Vol] 4.5 g/dL Normal 3.3-5.0 [facility] Comment on above: Performed By: #### 1 7963401, 8338888, 1356762, 3533091, 6942262, 9594679, 2962174 #### [facility] [address] [place] [address] Albumin/Globulin (S) [Mass conc ratio] 1.4 Normal 1.1-2.2 [facility] Comment on above: Performed By: #### 1 2287636, 0746270, 3139024, 0840369, 8275564, 2975278, 5300773 #### [facility] [address] [place] [address] ALP [Catalytic activity/Vol] 120 Int._Unit/L High 21-98 [facility] Comment on above: Performed By: #### 1 9564742, 6842308, 1501476, 6417162, 0362621, 2923211, 0557751 #### [facility] [address] [place] [address] ALT No additional P-5'-P [Catalytic activity/Vol] 98 Int._Unit/L High 6-46 [facility] Comment on above: Performed By: #### 1 7923748, 1217903, 9362511, 0976673, 0039964, 2584611, 3465263 #### [facility] [address] [place] [address] Anion gap [Moles/Vol] 12 mmol/L Normal 6-16 [facility] Comment on above: Performed By: #### 1 1544386, 9387986, 4252965, 7224769, 0128926, 9256956, 9051295 #### [facility] [address] [place] [address] AST [Catalytic activity/Vol] 39 Int._Unit/L Normal 5-43 [facility] Comment on above: Performed By: #### 1 3899802, 3628208, 3667857, 2206378, 5454495, 6736382, 2988286 #### [facility] [address] [place] [address] Bilirubin [Mass/Vol] 0.3 mg/dL Normal 0.0-1.1 [facility] Comment on above: Performed By: #### 1 5297856, 8033462, 5649888, 4423685, 0036377, 9515906, 0401127 #### [facility] [address] [place] [address] Calcium [Mass/Vol] 9.9 mg/dL Normal 8.9-11.1 [facility] Comment on above: Performed By: #### 1 6260467, 6968686, 9130606, 7852573, 7459901, 8603121, 7317701 #### [facility] [address] [place] [address] Chloride [Moles/Vol] 105 mmol/L Normal 101-111 [facility] Comment on above: Performed By: #### 1 1290685, 9280329, 6271518, 5009961, 9461015, 8246675, 2637158 #### [facility] [address] [place] [address] CO2 [Moles/Vol] 25 mmol/L Normal 21-[address] [facility] Comment on above: Performed By: #### 1 8841680, 2564489, 5793690, 3071637, 1806098, 9988247, 8868879 #### [facility] [address] [place] [address] Creatinine [Mass/Vol] 0.8 mg/dL Normal 0.5-1.3 [facility] Comment on above: Performed By: #### 1 3287615, 6169104, 5107840, 7056562, 1373697, 4235266, 7372741 #### [facility] [address] [place] [address] Globulin (S) [Mass/Vol] 3.2 g/dL Normal 1.4-4.0 [facility] Comment on above: Performed By: #### 1 9504204, 5013879, 2616882, 6925104, 1427622, 6563581, 4370551 #### [facility] [address] [place] [address] Glucose [Mass/Vol] 84 mg/dL Normal 55-199 [facility] Comment on above: Performed By: #### 1 7266505, 2783680, 8437199, 4278413, 4897489, 7988862, 0322125 #### [facility] [address] [place] [address] Potassium [Moles/Vol] 4.4 mmol/L Normal 3.5-5.3 [facility] Comment on above: Performed By: #### 1 5524141, 7079201, 6435118, 5218329, 6039995, 3822829, 0763384 #### [facility] [address] [place] [address] Protein [Mass/Vol] 7.7 g/dL Normal 6.0-7.8 [facility] Comment on above: Performed By: #### 1 9341014, 7824721, 4673510, 0201031, 8805217, 8654529, 1291335 #### [facility] [address] [place] [address] Sodium [Moles/Vol] 138 mmol/L Normal 135-145 [facility] Comment on above: Performed By: #### 1 4768704, 4001626, 7794925, 3965506, 4918210, 8127854, 8444008 #### [facility] [address] [place] [address] Urea nitrogen [Mass/Vol] 13 mg/dL Normal 5-21 [facility] Comment on above: Performed By: #### 1 9660015, 1398425, 4663560, 8947548, 8281030, 4974198, 4368580 #### [facility] [address] [place] [address] Urea nitrogen/Creatinine [Mass ratio] 16 No Units Normal 10-20 [facility] Comment on above: Performed By: #### 1 9727845, 0395506, 8215915, 0363206, 0676591, 2094057, 2329813 #### [facility] [address] [place] [address] Dilantinon 11-26-2023 Phenytoin Total 12.1 microgram/mL Normal 10.0-19.9 [facility] Comment on above: Performed By: #### 1 9518426, 3106929, 4620611, 8154804, 5934291, 8135165, 4978910 #### [facility] [address] [place] [address] Free T4on 11-26-2023 Free T4 [Mass/Vol] 0.78 ng/dL Normal 0.58-1.64 [facility] Comment on above: Performed By: #### 1 6928159, 3957072, 6185003, 5523272, 6107774, 1568247, 9384508 #### [facility] [address] [place] [address] HEMATOLOGYOrdered By: SYSTEM SYSTEM on 11-26-2023 Erythrocyte [...] Heme Physician Orderon 11-26-2023 Physician Order [id number] Normal [facility] TSHon 11-26-2023 TSH Qn 0.55 m[IU]/L Normal 0.34-5.60 [facility] Comment on above: Performed By: #### 1 8168975, 1194135, 8660065, 0736689, 8655405, 4192868, 1191991 #### [facility] [address] [place] [address] eGFRon 11-26-2023 eGFR 118 mL/min/1.73 m2 Normal >=59 [facility] Comment on above: Order Comment: Order added by Discern Expert. Performed By: #### 1 5116611, 7261888, 4601786, 6583389, 9913060, 5857640, 3297639 #### [facility] [address] [place] [address] Telephone Encounteron 2022 Zoo Director Authentication Interface Message Text Reason for Escalation: RN Kenya from [facility] calling in to speak with Blanquita. She [...] OR appts. Kenya can be reached at [phone]. E-mail sent to Kelli 03/11/23 Normal [facility] Progress Noteson 02-12-2023 Zoo Director Authentication Interface Message Text ----- Sunday, February 12, 2023 at 10:21:24 AM ----- ----- Provider: Elena Benedict DDS -- Clinic: [place] [address] ----- OR EVALUATION Patient presents for evaluation [...] a time slot becomes available. Legal Guardian: [phone] (Home Phone) Alternate Hand Cloth Cutter Noe Moraes (Father) NOTE: Consent form provider to caregiver, explained that when consent form is faxed, patient will be added to the OR list Next Visit: OR Normal [facility] CBC AUTO DIFFon 11-06-2022 BASO # 0.0 103/ul Normal 0.0-0.1 [facility] Comment on above: Performed By: #### C BC #### [facility] [address] [place] [address] Dr. Brenton Ravi Basophils/100 WBC (Bld) 0.4 % Normal 0.2-2.0 [facility] Comment on above: Performed By: #### C BC #### [facility] [address] [place] [address] Dr. Brenton Ravi EO # 0.1 103/ul Normal 0.0-0.7 [facility] Comment on above: Performed By: #### C BC #### [facility] [address] [place] [address] Dr. Brenton Ravi Eosinophils/100 WBC (Bld) 2.0 % Normal 0.9-7.0 [facility] Comment on above: Performed By: #### C BC #### [facility] [address] [place] [address] Dr. Brenton Ravi Erythrocyte distribution width (RBC) [Ratio] 12.5 % Normal 11.0-15.0 [facility] Comment on above: Performed By: #### C BC #### [facility] [address] [place] [address] [address] Brenton Ravi Hematocrit (Bld) [Volume fraction] 44.5 % Normal 42.0-54.0 [facility] Comment on above: Performed By: #### C BC #### [facility] [address] [place] [address] [address] Brenton Ravi Hemoglobin (Bld) [Mass/Vol] 14.8 g/dL Normal 14.0-18.0 [facility] Comment on above: Performed By: #### C BC #### [facility] [address] [place] [address] [address] Brenton Ravi IG # 0.02 10e3/ul Normal 0.00-0.03 [facility] Comment on above: Performed By: #### C BC #### [facility] [address] [place] [address] [address] Brenton Ravi IG % 0.4 % Normal 0.0-0.5 [facility] Comment on above: Performed By: #### C BC #### [facility] [address] [place] [address] [address] Brenton Ravi LYMPH # 1.8 103/ul Normal 1.2-3.8 [facility] Comment on above: Performed By: #### C BC #### [facility] [address] [place] [address] [address] Brenton Ravi Lymphocytes/100 WBC (Bld) 36.7 % Normal 20.5-60.0 [facility] Comment on above: Performed By: #### C BC #### [facility] [address] [place] [address] [address] Brenton Ravi MANUAL DIFF REQ NO Normal [facility] Comment on above: Performed By: #### C BC #### [facility] [address] [place] [address] Dr. Brenton Ravi MCH (RBC) [Entitic mass] 27.8 pg Normal 25.9-34.0 [facility] Comment on above: Performed By: #### C BC #### [facility] [address] [place] [address] [address] Brenton Ravi MCHC (RBC) [Mass/Vol] 33.3 g/dL Normal 29.9-35.2 [facility] Comment on above: Performed By: #### C BC #### [facility] [address] [place] [address] [address] Brenton Ravi MCV (RBC) [Entitic vol] 83.5 fL Normal 80.0-94.0 [facility] Comment on above: Performed By: #### C BC #### [facility] [address] [place] [address] [address] Brenton Ravi MONO # 0.4 103/ul Normal 0.3-0.8 [facility] Comment on above: Performed By: #### C BC #### [facility] [address] [place] [address] Dr. Brenton Ravi Monocytes/100 WBC (Bld) 8.2 % Normal 1.7-12.0 [facility] Comment on above: Performed By: #### C BC #### [facility] [address] [place] [address] Dr. Brenton Ravi NEUT # 2.6 103/ul Normal 1.4-6.5 [facility] Comment on above: Performed By: #### C BC #### [facility] [address] [place] [address] Dr. Brenton Ravi Neutrophils/100 WBC (Bld) 52.3 % Normal 43.0-75.0 [facility] Comment on above: Performed By: #### C BC #### [facility] [address] [place] [address] Dr. Brenton Ravi Platelet mean volume (Bld) [Entitic vol] 8.8 fL Critically low 9.5-13.5 [facility] Comment on above: Performed By: #### C BC #### [facility] [address] [place] [address] Dr. Brenton Ravi PLT 291 103/ul Normal 150-450 [facility] Comment on above: Performed By: #### C BC #### [facility] [address] [place] [address] Dr. Brenton Ravi RBC 5.33 106/ul Normal 4.70-6.10 [facility] Comment on above: Performed By: #### C BC #### [facility] [address] [place] [address] Dr. Brenton Ravi WBC 5.0 103/ul Normal 4.0-11.0 [facility] Comment on above: Performed By: #### C BC #### [facility] [address] [place] [address] Dr. Brenton Ravi DILANTINon 11-06-2022 Phenytoin [Mass/Vol] 11.7 ug/mL Normal 10.0-20.0 [facility] Comment on above: Performed By: #### P HY #### [facility] [address] [place] [address] Dr. Brenton Ravi FREE T4on 11-06-2022 Free T4 [Mass/Vol] 0.86 ng/dL Normal 0.76-1.46 [facility] Comment on above: Performed By: #### F T4 #### [facility] [address] [place] [address] Dr. Brenton Ravi LIPID PROFILEon 11-06-2022 CHOL-HDL RATIO NORM SEE BELOW Normal [facility] Comment on above: Result Comment: 3.3 - 4.4 LOW RISK 4.4 - 7.1 AVERAGE RISK 7.1 - 11.0 MODERATE RISK >11.0 HIGH RISK Performed By: #### C MP, LIPID, TSH #### [facility] [address] [place] [address] Dr. Brenton Ravi Cholesterol [Mass/Vol] 133 mg/dL Normal <=200 [facility] Comment on above: Performed By: #### C MP, LIPID, TSH #### [facility] [address] [place] [address] Dr. Brenton Ravi Cholesterol in HDL [Mass/Vol] 32 mg/dL Critically low 40-60 [facility] Comment on above: Performed By: #### C MP, LIPID, TSH #### [facility] [address] [place] [address] Dr. Brenton Ravi Cholesterol in LDL [Mass/Vol] 74.6 mg/dL Normal [facility] Comment on above: Performed By: #### C MP, LIPID, TSH #### [facility] [address] [address] [address] Brenton Ravi Cholesterol.total/Cho lesterol in HDL [Mass ratio] 4.2 {ratio} Normal [facility] Comment on above: Performed By: #### C MP, LIPID, TSH #### [facility] [address] [place] [address] [address] Brenton Ravi HDL NORMAL > or = 60 mg/dl - LOW CARDIOVASCULAR RISK <40 mg/dl - HIGH CARDIOVASCULAR RISK Normal [facility] Comment on above: Performed By: #### C MP, LIPID, TSH #### [facility] [address] [place] [address] Dr. Brenton Ravi LDL CALC NORMAL SEE BELOW Normal [facility] Comment on above: Result Comment: <100 mg/dl OPTIMAL 100 - 129 mg/dl NEAR OR ABOVE OPTIMAL 130 - 159 mg/dl BORDERLINE HIGH 160 - 189 mg/dl HIGH >190 mg/dl VERY HIGH Performed By: #### C MP, LIPID, TSH #### [facility] [address] [place] [address] Dr. Brenton Ravi Triglyceride [Mass/Vol] 132 mg/dL Normal <=150 [facility] Comment on above: Performed By: #### C MP, LIPID, TSH #### [facility] [address] [place] [address] Dr. Brenton Ravi VLDL CALC 26.4 mg/dL Normal [facility] Comment on above: Performed By: #### C MP, LIPID, TSH #### [facility] [address] [place] [address] [address] Brenton Ravi PROF 14(COMP METB)on 023 Albumin [Mass/Vol] 4.0 g/dL Normal 3.4-5.0 [facility] Comment on above: Performed By: #### C MP, LIPID, TSH #### [facility] [address] [place] [address] Dr. Brenton Ravi Albumin/Globulin [Mass ratio] 1.1 {ratio} Normal [facility] Comment on above: Performed By: #### C MP, LIPID, TSH #### [facility] [address] [place] [address] [address] Brenton Ravi ALP [Catalytic activity/Vol] 140 U/L Critically high 46-116 [facility] Comment on above: Performed By: #### C MP, LIPID, TSH #### [facility] [address] [address] [address] Brenton Ravi ALT [Catalytic activity/Vol] 122 U/L Critically high 16-63 [facility] Comment on above: Performed By: #### C MP, LIPID, TSH #### [facility] [address] [place] [address] Dr. Brenton Ravi Anion gap [Moles/Vol] 11.6 mmol/L Normal [facility] Comment on above: Performed By: #### C MP, LIPID, TSH #### [facility] [address] [place] [address] Dr. Brenton Ravi AST [Catalytic activity/Vol] 37 U/L Normal 15-37 [facility] Comment on above: Performed By: #### C MP, LIPID, TSH #### [facility] [address] [place] [address] Dr. Brenton Ravi Bilirubin [Mass/Vol] 0.2 mg/dL Normal 0.2-1.0 [facility] Comment on above: Performed By: #### C MP, LIPID, TSH #### [facility] [address] [place] [address] Dr. Brenton Ravi Calcium [Mass/Vol] 9.1 mg/dL Normal 8.5-10.1 [facility] Comment on above: Performed By: #### C MP, LIPID, TSH #### [facility] [address] [place] [address] Dr. Brenton Ravi Chloride [Moles/Vol] 105 mmol/L Normal 98-107 [facility] Comment on above: Performed By: #### C MP, LIPID, TSH #### [facility] [address] [place] [address] Dr. Brenton Ravi CO2 [Moles/Vol] 29.5 mmol/L Normal 21.0-32.0 [facility] Comment on above: Performed By: #### C MP, LIPID, TSH #### [facility] [address] [address] [address] Brenton Ravi Creatinine [Mass/Vol] 0.79 mg/dL Normal 0.70-1.30 [facility] Comment on above: Performed By: #### C MP, LIPID, TSH #### [facility] [address] [address] [address] Brenton Ravi EGFR-AF CANADIAN >60 Normal >=60 [facility] Comment on above: Performed By: #### C MP, LIPID, TSH #### [facility] [address] [address] [address] Brenton Ravi EGFR-NON AF CANADIAN >60 Normal >=60 [facility] Comment on above: Performed By: #### C MP, LIPID, TSH #### [facility] [address] [address] [address] Brenton Ravi Globulin (S) [Mass/Vol] 3.7 g/dL Normal [facility] Comment on above: Performed By: #### C MP, LIPID, TSH #### [facility] [address] [address] [address] Brenton Ravi Glucose [Mass/Vol] 105 mg/dL Normal 74-106 [facility] Comment on above: Performed By: #### C MP, LIPID, TSH #### [facility] [address] [address] [address] Brenton Ravi Potassium [Moles/Vol] 4.1 mmol/L Normal 3.5-5.1 [facility] Comment on above: Performed By: #### C MP, LIPID, TSH #### [facility] [address] [address] [address] Brenton Ravi Protein [Mass/Vol] 7.7 g/dL Normal 6.4-8.2 [facility] Comment on above: Performed By: #### C MP, LIPID, TSH #### [facility] [address] [address] [address] Brenton Ravi Sodium [Moles/Vol] 142 mmol/L Normal 136-145 [facility] Comment on above: Performed By: #### C MP, LIPID, TSH #### [facility] [address] [address] [address] Brenton Ravi Urea nitrogen [Mass/Vol] 10.0 mg/dL Normal 7.0-18.0 [facility] Comment on above: Performed By: #### C MP, LIPID, TSH #### [facility] [address] [address] [address] Brenton Ravi Urea nitrogen/Creatinine [Mass ratio] 12.7 mg/mg Normal [facility] Comment on above: Performed By: #### C MP, LIPID, TSH #### [facility] [address] [address] [address] Brenton Ravi TSHon 11-06-2022 TSH 1.080 uIU/mL Normal 0.358-3.740 [facility] Comment on above: Performed By: #### C MP, LIPID, TSH #### [facility] [address] [address] [address] Brenton Ravi Encounters Encounter Date Encounter Type Care Provider Facility Start: 11-26-2023 End: 11-26-2023 Lab Drop off OMAR VERDUZCO [facility] Start: 11-26-2023 End: 11-27-2023 ambulatory OMAR VERDUZCO Facility:[facility] Start: 10-30-2023 Telephone encounter [facility] Start: 03-11-2023 Telephone encounter Shannen Benedict Work Phone: [facility] Comment on above: Dental Start: 02-12-2023 End: 02-13-2023 ambulatory UNKNOWN PROVIDER Facility:[facility] Start: 11-06-2022 End: 11-07-[address] OMAR VERDUZCO Facility: Plan of Treatment Date Care Activity Detail Author Start: 2038 Shingles (RZV) Vacci ne (1 of 2) Shingles (RZV) Vaccine (1 of 2) [facility] Start: 02-04-2024 Tetanus vaccination Tetanus (T d or Tdap) [facility] Start: 06-01-2023 Influenza vaccination Influenza Vacc ine (#1) [facility] Start: 05-02-2023 Influenza vaccination Influenza Vacc ine [facility] [facility] Start: 11-26-2007 DTaP,Tdap and Td Vaccines (1 - Tdap) DTaP,Tdap and Td Vaccines (1 - Tdap) [facility] Start: 2006 Adult BMI Screening Adult BMI Screen ing [facility] Start: 2006 Hepatitis C screening Hepatitis C An tibody [facility] Start: 11-26-2003 HIV screening HIV Test [facility] Start: 2000 Depression Screening Depression Scre ening [facility] Start: 2000 Tobacco Screening Tobacco Screening [facility] Start: 1988 Basic metabolic 2000 panel - Serum or Plasma Basic Metabolic Panel [facility] Start: 1988 Thyroid stimulating hormone measurement TSH [facility] Immunizations Immunization Date Immunization Notes Care Provider Fa cility 06-27-2021 influenza, injectabl e, quadrivalent, preservative [facility] 06-27-2021 influenza virus vacc ine, unspecified formulation [facility] Work Phone: [facility] 10-03-2020 Pfizer Monovalent (1 2+ yrs) SARS-COV-2 (COVID-19) vaccine, mRNA, spike protein, LNP, pres. free, 30 mcg/0.3mL dose (VAT=447) [facility] Benedict Work Phone: [facility] 09-12-2020 Pfizer Monovalent (1 2+ yrs) SARS-COV-2 (COVID-19) vaccine, mRNA, spike protein, LNP, pres. free, 30 mcg/0.3mL dose (MIH=814) [facility] Benedict Work Phone: [facility] 06-07-2020 influenza, injectabl e, quadrivalent, preservative free Shannen Jose Benedict Work Phone: [facility] 06-25-2019 influenza, injectabl e, quadrivalent, preservative free Shannen Jose Benedict Work Phone: [facility] 06-10-2018 influenza, injectabl e, quadrivalent, preservative free Shannen Jose Benedict Work Phone: [facility] 06-25-2017 influenza, injectabl e, quadrivalent, contains preservative Shannen Jose Benedict Work Phone: [facility] 06-05-2016 influenza, seasonal, injectable Shannen Jose Benedict Work Phone: [facility] 06-22-2015 influenza, injectabl e, quadrivalent, preservative free Shannen Garcia Benedict Work Phone: [facility] 07-07-2014 influenza, injectabl e, quadrivalent, preservative free Shannen Jose Benedict Work Phone: [facility] 02-03-2014 tetanus toxoid, redu devyn diphtheria toxoid, and acellular pertussis vaccine, adsorbed [facility] 06-29-2013 influenza, seasonal, injectable Shannen Jose Benedict Work Phone: [facility] 06-24-2012 influenza, seasonal, injectable Shannen Jose Benedict Work Phone: [facility] 05-15-2011 influenza, seasonal, injectable Shannen Barleela Benedict Work Phone: [facility] 06-27-2010 influenza virus vacc ine, whole virus [facility] 07-19-2009 novel influenza-H1N1 -09, preservative-free, injectable Shannen Jose Benedict Work Phone: [facility] 06-23-2008 influenza virus vacc ine, whole virus [facility] 06-17-2007 influenza, seasonal, injectable Shannen Benedict Work Phone: [facility] 01-15-2007 meningococcal polysa ccharide (groups A, C, Y and W-135) diphtheria toxoid conjugate vaccine (MCV4P) Shannen Benedict Work Phone: [facility] 06-30-2006 influenza, seasonal, injectable Shannen Benedict Work Phone: [facility] 06-21-2004 hepatitis B vaccine, pediatric or pediatric/adolescent dosage Shannen Jose Benedict Work Phone: [facility] 01-25-2004 hepatitis B vaccine, pediatric or pediatric/adolescent dosage Shannen Jose Benedict Work Phone: [facility] 12-14-2003 hepatitis B vaccine, pediatric or pediatric/adolescent dosage Shannen Jose Benedict Work Phone: [facility] 12-14-2003 TD(adult) unspecifie d formulation Shannen Jose Benedict Work Phone: [facility] 12-20-1993 diphtheria, tetanus toxoids and acellular pertussis vaccine, unspecified formulation Elbert Jose Benedict Work Phone: [facility] 12-20-1993 measles, mumps and r ubella virus vaccine Elbert Jose Benedict Work Phone: [facility] 12-20-1993 trivalent poliovirus vaccine, live, oral Shannen Jose Benedict Work Phone: [facility] 05-03-1992 diphtheria, tetanus toxoids and acellular pertussis vaccine, unspecified formulation Shannen Jose Benedict Work Phone: [facility] 05-03-1992 measles, mumps and r ubella virus vaccine Elbert Jose Benedict Work Phone: [facility] 05-03-1992 trivalent poliovirus vaccine, live, oral Shannen Jose Benedict Work Phone: [facility] 05-27-1990 diphtheria, tetanus toxoids and acellular pertussis vaccine, unspecified formulation Shannen Benedict Work Phone: [facility] 05-27-1990 haemophilus influenz ae type b vaccine, PRP-T conjugate Shannen Benedict Work Phone: [facility] 05-27-1990 trivalent poliovirus vaccine, live, oral Shannen Benedict Work Phone: [facility] 05-21-1990 trivalent poliovirus vaccine, live, oral Shannen Benedict Work Phone: [facility] 11-19-1989 diphtheria, tetanus toxoids and acellular pertussis vaccine, unspecified formulation Shannen Benedict Work Phone: [facility] 01-30-1989 diphtheria, tetanus toxoids and acellular pertussis vaccine, unspecified formulation Shannen Benedict Work Phone: [facility] 01-30-1989 trivalent poliovirus vaccine, live, oral Shannen Benedict Work Phone: [facility] Payers Date Payer Category Payer Medicaid MEDICAID [id number] DITIONAL MEDICAID [id number] 2012-Present [address] [place] [address] Medicaid [id number] 1988 Unknown [id number] 1988 Unknown [id number] 1988 Unknown [id number] 1961 Medicaid [id number] Social History Date Type Detail Facility Tobacco smoking status NVIS [facility]: [facility] Sex Assigned At Not on file [facility] Gender identity Not on file [facility] Tobacco smoking status No Smoking Status Entered [facility] Evaluation + Plan note 11-26-2023 Note Date & Type Note Facility 11-26-2023 Evaluation + Plan note Diagnostic Tests PendingT3 Free 11/26/23 [facility] Note 10-30-2023 Telephone Encounter - Alecia Batista - 10/30/2023 9:43 AM EST Note Date & Type Note Facility 10-30-2023 Miscellaneous Notes Formattin g of this note might be different from the original. [facility] called stating they needed to cancel his appt on 11/25/[address] Snow as he was the wrong pt. documented in this encounter [facility] Telephone encounter Note 10-30-2023 Telephone Encounter - Alecia Batista - 10/30/2023 9:43 AM EST Note Date & Type Note Facility 10-30-2023 Telephone encount er Note [facility] called stating they needed to cancel his appt on 11/25/[address] Snow as he was the wrong pt. [facility] Telephone encounter Note 03-11-2023 Telephone Encounter - Aminata Conway - 03/11/2023 2:33 PM EDT Note Date & Type Note Facility 03-11-2023 Telephone encounter Note Form atting of this note might be different from the original. Reason for Escalation: RN Kenya from [facility] calling in to speak with Blanquita. She states she had a phone number for [employer] that no longer works. The pt was seen on 02/12/23 and was placed on the OR waitlist. Kenya states that pt upper left tooth has broken. They would like to know if the clinic has a cancelation list or urgent waitlist for OR appts. Kenya can be reached at [phone]. E-mail sent to Kelli [facility]11[facility]-11[facility]23 Telephone Encounter - Aminata Conway - 03/11/2023 2:33 PM EDT Note Date & Type Note Facility 03-11-2023 Miscellaneous Notes Formattin g of this note might be different from the original. Reason for Escalation: RN Kenya from [facility] calling in to speak with Blanquita. She [...] OR appts. Kenya can be reached at [phone]. E-mail sent to Kelli 03/11/23 documented in this encounter [facility] Hospital course Narrative Note Date & Type Note [facility] Hospital course Narrative No data available for this section [facility] Hospital Discharge instructions Note Date & Type Note Facility Hospital Discharge instructions No data available for this section [facility] Instructions Note Date & Type Note Facility Instructions Not on filedocumented in this en counter [facility] Progress note Note Date & Type Note Facility Progress note No data available for this section [facility] Summary Purpose Family History No Family History [...] and content) DATE CREATED AUTHOR 12/07/2022 [facility] DATE CREATED AUTHOR AUTHOR'S ORGANIZ ATION 03/12/2023 [facility] DATE CREATED AUTHOR AUTHOR'S ORGANIZ ATION 11/28/2023 [facility] Reason for Visit (unrecogniz ed section and content) Reason Onset Date Comments Dental 03/11/2023 Patient Care team informatio n (unrecognized section and content) Personnel Name: OMAR VERDUZCO DO Address: Address: [address] [place] [address] FOR RECORDS PERTAINING TO PATIENTS WHO ARE [...] BE BASED ON THE PRIMARY CLINICAL RECORDS. [facility] [employer] [facility]. provides no warranty or guarantee of the accuracy or completeness of information in this document.
== END 2024-11-09 09:12 | disposition home or self-care (01) ==
LOC: LAB 11-15 09:11
PROVIDERS: PCP Family Medicine; Visit Provider Family Medicine
DX: Z79.899 Other long term (current) drug therapy (principal); E03.9 Hypothyroidism, unspecified; I10 Essential (primary) hypertension; G40.909 Epilepsy, unspecified, not intractable, without status epilepticus; K75.9 Inflammatory liver disease, unspecified; G93.40 Encephalopathy, unspecified; K59.00 Constipation, unspecified; F31.9 Bipolar disorder, unspecified
CPT/HCPCS: 36415; 80053; 84439; 84443; 84481; 85025